=== PATIENT | male | born 1955 | race Two or more races ===

== ENCOUNTER → 2016-10-07 | Outpatient (REF) | payer BC ==
[~2016-10-07] MED LIST: FERR324T2 PO; JANU50TA8 PO; KRIL1000 PO; LEVE1INJ5 SC; MULTCAP PO; OMEG100011 PO; PANT40TA2 PO; ROBISYP PO; VITA20008 PO; ZOSTINJ SC; [UNRECOGNIZED DRUG - CODE] TOP
[2016-10-07 11:40] LABS: ANION GAP 10 MEQ/L (8-16); BLOOD UREA NITROGEN 12 MG/DL (7-18); CALCIUM LEVEL 9.2 MG/DL (8.8-10.2); CARBON DIOXIDE LEVEL 29 MEQ/L (21-32); CHLORIDE LEVEL 101 MEQ/L (98-107); CREATININE FOR GFR 1.06 MG/DL (0.70-1.30); GLOMERULAR FILTRATION RATE > 60.0 (>49); GLUCOSE, FASTING 183 MG/DL (80-110); POTASSIUM SERUM 4.8 MEQ/L (3.5-5.1); SODIUM LEVEL 140 MEQ/L (136-145)
[2016-10-07 16:59] LABS: HIV SCRN NEGATIVE (NEGATIVE); HIV SCRN1 NEGATIVE (NEGATIVE)
[2016-10-07 17:00] LABS: CONTROL LINE INT CTR LINE PRESENT
== END ==
LOC: M SFHCPLAZ 08:54
PROVIDERS: ATTEND Internal Medicine Infectious Disease
DX: Z72.52 High risk homosexual behavior (principal); A52.71 Late syphilitic oculopathy

== ENCOUNTER → 2017-01-09 | Outpatient (CLI) | payer BC | LOC: M WUC 08:02 | PROVIDERS: ATTEND Internal Medicine Infectious Disease | DX: Z72.52 High risk homosexual behavior (principal) ==

== ENCOUNTER → 2017-04-07 | Outpatient (CLI) | payer BC ==
[2017-04-07 10:14] LABS: ANION GAP 8 MEQ/L (8-16); BLOOD UREA NITROGEN 13 MG/DL (7-18); CALCIUM LEVEL 9.5 MG/DL (8.8-10.2); CARBON DIOXIDE LEVEL 28 MEQ/L (21-32); CHLORIDE LEVEL 100 MEQ/L (98-107); CREATININE FOR GFR 1.12 MG/DL (0.70-1.30); GLOMERULAR FILTRATION RATE > 60.0 (>49); GLUCOSE, FASTING 183 MG/DL (80-110); POTASSIUM SERUM 4.7 MEQ/L (3.5-5.1); SODIUM LEVEL 136 MEQ/L (136-145)
== END ==
LOC: M WUC 08:00
PROVIDERS: ATTEND Internal Medicine Infectious Disease
DX: Z72.52 High risk homosexual behavior (principal)

== ENCOUNTER → 2017-04-10 | Outpatient (REF) | payer BC ==
[2017-04-16 00:10] LABS: CHLAMYDIA RECTAL APTIMA Negative (Negative); GC RECTAL APTIMA Negative (Negative)
[2017-04-16 08:09] LABS: CHLAMYDIA PHARYNGEAL APTIMA Negative (Negative); GC PHARYNGEAL APTIMA Negative (Negative)
== END ==
LOC: M SFHCPLAZ 12:21
PROVIDERS: ATTEND Internal Medicine Infectious Disease
DX: Z72.52 High risk homosexual behavior (principal)

== ENCOUNTER → 2017-05-20 | Outpatient (REF) | payer BC ==
[2017-05-20 11:20] LABS: ANION GAP 10 MEQ/L (8-16); BLOOD UREA NITROGEN 8 MG/DL (7-18); CALCIUM LEVEL 9.9 MG/DL (8.8-10.2); CARBON DIOXIDE LEVEL 27 MEQ/L (21-32); CHLORIDE LEVEL 103 MEQ/L (98-107); CHOLESTEROL LEVEL 155 MG/DL (<200); CREATININE FOR GFR 0.98 MG/DL (0.70-1.30); GLOMERULAR FILTRATION RATE > 60.0 (>49); GLUCOSE, FASTING 117 MG/DL (80-110); POTASSIUM SERUM 4.6 MEQ/L (3.5-5.1); SODIUM LEVEL 140 MEQ/L (136-145); TRIGLYCERIDES LEVEL 97 MG/DL (<150)
== END ==
LOC: M SFHCPLAZ 09:17
PROVIDERS: ATTEND Family Medicine
DX: E11.9 Type 2 diabetes mellitus without complications (principal); E78.2 Mixed hyperlipidemia

== ENCOUNTER → 2017-07-03 | Outpatient (CLI) | payer BC ==
[2017-07-03 09:44] LABS: ANION GAP 5 MEQ/L (8-16); BLOOD UREA NITROGEN 14 MG/DL (7-18); CALCIUM LEVEL 9.4 MG/DL (8.8-10.2); CARBON DIOXIDE LEVEL 31 MEQ/L (21-32); CHLORIDE LEVEL 103 MEQ/L (98-107); CREATININE FOR GFR 0.96 MG/DL (0.70-1.30); GLOMERULAR FILTRATION RATE > 60.0 (>49); GLUCOSE, FASTING 139 MG/DL (80-110); SODIUM LEVEL 139 MEQ/L (136-145)
== END ==
LOC: M WUC 08:02
PROVIDERS: ATTEND Internal Medicine Infectious Disease
DX: Z72.52 High risk homosexual behavior (principal); A52.71 Late syphilitic oculopathy

== ENCOUNTER → 2017-07-03 | Outpatient (CLI) | payer BC ==
--- NOTE | 2017-07-03 10:04 | REP ---
Chest x-ray: Two views. History: Pulmonary fibrosis. Comparison chest x-ray December 13, 2014. Findings: There is a questionable 1 cm nodular opacity overlying the anterior end of the left 6th rib at the left lung base on today's PA chest radiograph. This is not seen on lateral radiograph. I cannot exclude a pulmonary nodule. Chest CT scanning is recommended. Remaining lung mancuso are clear. Heart is not enlarged. Pleural angles are sharp. There are mild degenerative disc changes in the thoracic spine. Impression: Question nodular opacity superimposed on the anterior 6th rib on the left lung base. Suggest chest CT study. Otherwise no acute disease. Signed by Phan Miranda MD 07/03/2017 11:59 A
== END ==
LOC: M WUC 08:08
PROVIDERS: ATTEND Internal Medicine Cardiovascular Disease
DX: J84.10 Pulmonary fibrosis, unspecified (principal)

== ENCOUNTER → 2017-08-04 | Outpatient (CLI) | payer BC ==
--- NOTE | 2017-08-04 19:50 | REP ---
CT CHEST WITHOUT CONTRAST: 08/04/2017. Clinical history: Questionable pulmonary nodule on recent radiograph. Comparison: 07/03/2017, 12/13/2014 chest x-ray. Findings: Axial soft-tissue and lung windows with coronal and sagittal reconstructions. Bone windows are also reviewed. The lung mancuso are well inflated. There is no pleural effusion. Minor dependent atelectatic changes deep sulcus right lower lobe. There is no pleural based mass, pleural plaque or calcified plaque or parenchymal mass. I see no pulmonary nodule, acute infiltrate, atelectasis or other acute finding. No bronchiectasis. There is no pneumothorax or pneumomediastinum. The heart is not enlarged. There is no pericardial thickening or effusion. Some scattered calcifications in the coronary arteries noted. No pericardial thickening or effusion. No pathologic sized mediastinal or hilar adenopathy. No aortic aneurysm. I see no axillary or supraclavicular mass. Bone windows show the sternum, manubrium, clavicles, AC joints, glenohumeral joints, scapula and ribs without fracture or focal lesion. There are degenerative changes and multiple Schmorl's nodes seen throughout the thoracic spine at various levels. No acute compression deformity. Some minor anterior wedging of L1 is old with no paraspinal hematoma. The upper abdomen shows no hepatomegaly or focal hepatic lesion. No biliary dilatation. Gallbladder without calcified stones visualized pancreas intact. Stomach with neda from prior surgery. Granulomatous calcifications in the spleen. I see no chest wall mass or calcifications that might be have a plain radiographic appearance. Impression: 1. There is no chest wall lesion, rib lesion, pleural lesion, parenchymal lung mass or other finding to account for the radiographic appearance. I believe this is superimposition of the anterior left 6th and posterior 9th rib on that left side. 2. Small granulomas disease seen in the spleen. No acute finding. Signed by Baljinder Hinton MD 08/04/2017 08:06 P
== END ==
LOC: M RAD 17:18
PROVIDERS: ATTEND Internal Medicine Cardiovascular Disease
DX: R91.1 Solitary pulmonary nodule (principal)

== ENCOUNTER → 2017-09-23 | Outpatient (CLI) | payer BC ==
[2017-09-23 11:25] LABS: ESTIMATED AVERAGE GLUCOSE 160 MG/DL (60-110); HEMOGLOBIN A1c 7.2 %
== END ==
LOC: M WUC 08:03
DX: E11.65 Type 2 diabetes mellitus with hyperglycemia (principal)
CPT/HCPCS: 83036

== ENCOUNTER → 2017-09-23 | Outpatient (CLI) | payer BC ==
[2017-09-23 10:03] LABS: ANION GAP 6 MEQ/L (8-16); BLOOD UREA NITROGEN 16 MG/DL (7-18); CARBON DIOXIDE LEVEL 33 MEQ/L (21-32); CHLORIDE LEVEL 102 MEQ/L (98-107); CREATININE FOR GFR 0.96 MG/DL (0.70-1.30); GLOMERULAR FILTRATION RATE > 60.0 (>49); GLUCOSE, FASTING 99 MG/DL (80-110); POTASSIUM SERUM 4.9 MEQ/L (3.5-5.1); SODIUM LEVEL 141 MEQ/L (136-145)
[2017-09-23 11:42] LABS: CHLAMYDIA DNA AMPLIFICATION NEGATIVE (NEGATIVE); GC DNA AMPLIFICATION NEGATIVE (NEGATIVE)
[2017-09-24 10:35] LABS: HIV 1&2 SCREEN CENTAUR NEGATIVE (NEGATIVE)
[2017-09-27 14:09] LABS: RPR Non Reactive (Non Reactive); T PALLIDUM ANTIBODIES Positive (Negative); T PALLIDUM IMMUNOBLOT Positive (Negative)
== END ==
LOC: M WUC 08:06
DX: Z72.52 High risk homosexual behavior (principal); A52.71 Late syphilitic oculopathy
CPT/HCPCS: 80048

== ENCOUNTER → 2017-11-04 | Day surgery (SDC) | payer BC ==
[~2017-11-04] MED LIST changes: -FERR324T2 PO; -JANU50TA8 PO; -KRIL1000 PO; -LEVE1INJ5 SC; +LIDOCAINE 2% INJ 100 MG/5 ML SDV (FOR ANES.) As Ordered; -MULTCAP PO; -OMEG100011 PO; -PANT40TA2 PO; +PROPOFOL 200 MG/20 ML VIAL As Ordered; -ROBISYP PO; -VITA20008 PO; -ZOSTINJ SC; -[UNRECOGNIZED DRUG - CODE] TOP
[2017-11-04] MEDS: NS 1,000 ML IV (07:30)
== END | disposition home or self-care (01) ==
LOC: M OPP 06:35
DX: K21.9 Gastro-esophageal reflux disease without esophagitis (principal); Z98.0 Intestinal bypass and anastomosis status; R00.8 Other abnormalities of heart beat; I10 Essential (primary) hypertension; E78.5 Hyperlipidemia, unspecified; E10.9 Type 1 diabetes mellitus without complications; R12 Heartburn; A53.9 Syphilis, unspecified; G47.30 Sleep apnea, unspecified; D64.9 Anemia, unspecified; G25.81 Restless legs syndrome; Z98.84 Bariatric surgery status; Z79.82 Long term (current) use of aspirin; Z79.899 Other long term (current) drug therapy
CPT/HCPCS: 91035

== ENCOUNTER → 2017-11-07 | Outpatient (CLI) | payer BC ==
[2017-11-07 09:25] LABS: HEMATOCRIT 42.3 % (42.0-52.0); MEAN CORPUSCULAR HEMOGLOBIN 29.9 pg (27.0-33.0); MEAN CORPUSCULAR HGB CONC 33.1 g/dl (32.0-36.5); MEAN CORPUSCULAR VOLUME 90.2 fl (80.0-96.0); PLATELET COUNT, AUTOMATED 249 10^3/uL (150-450); RED BLOOD COUNT 4.69 10^6/uL (4.30-6.10); WHITE BLOOD COUNT 6.9 10^3/uL (4.0-10.0)
[2017-11-07 09:51] LABS: IRON (FE) 111 UG/DL (65-175)
[2017-11-07 09:51] LABS: FREE T4 1.03 NG/DL (0.76-1.46); THYROID STIMULATING HORMONE 0.692 uIU/ML (0.358-3.740)
[2017-11-07 09:53] LABS: TOTAL 25(OH) VITAMIN D 41.5 NG/ML (30.0-100.0); VITAMIN B12 LEVEL 502 PG/ML (247-911)
[2017-11-11 08:07] LABS: ZINC PLASMA 74 ug/dL (56-134)
== END ==
LOC: M WUC 08:06
DX: K91.1 Postgastric surgery syndromes (principal)
CPT/HCPCS: 82525

== ENCOUNTER 2018-02-06 23:48 | Inpatient (IN) | payer BC ==
[2018-02-07 03:23] LABS: BASO % 0.3 % (0.0-1.0); EOS % 0.1 % (0.0-3.0); HEMATOCRIT 39.3 % (42.0-52.0); HEMOGLOBIN 13.4 g/dl (13.5-17.5); IMMATURE GRANULOCYTE % 0.3 % (0-3.0); LYMPH # 0.3 10^3/uL (1.5-4.5); LYMPH % 2.4 % (24.0-44.0); MEAN CORPUSCULAR HEMOGLOBIN 30.9 pg (27.0-33.0); MEAN CORPUSCULAR HGB CONC 34.1 g/dl (32.0-36.5); MEAN CORPUSCULAR VOLUME 90.6 fl (80.0-96.0); MONO # 0.9 10^3/uL (0.0-0.8); MONO % 7.5 % (0.0-5.0); NEUTROPHILS # 10.2 10^3/uL (1.8-7.7); NEUTROPHILS % 89.4 % (36.0-66.0); PLATELET COUNT, AUTOMATED 189 10^3/uL (150-450); RED BLOOD COUNT 4.34 10^6/uL (4.30-6.10); RED CELL DISTRIBUTION WIDTH 12.7 % (11.5-14.5); WHITE BLOOD COUNT 11.4 10^3/uL (4.0-10.0)
[2018-02-07 03:50] LABS: POSITIVE DIFF POS FLAG
[2018-02-07 03:54] LABS: ALBUMIN 3.6 GM/DL (3.2-5.2); ALBUMIN/GLOBULIN RATIO 0.97 (1.00-1.93); ALKALINE PHOSPHATASE 100 U/L (45-117); ALT/SGPT 135 U/L (12-78); ANION GAP 7 MEQ/L (8-16); AST/SGOT 107 U/L (7-37); BILIRUBIN,DIRECT 3.5 MG/DL (0.0-0.2); BILIRUBIN,TOTAL 4.2 MG/DL (0.2-1.0); BLOOD UREA NITROGEN 26 MG/DL (7-18); CALCIUM LEVEL 8.9 MG/DL (8.8-10.2); CARBON DIOXIDE LEVEL 27 MEQ/L (21-32); CHLORIDE LEVEL 104 MEQ/L (98-107); CPK CREATINE PHOSPHOKINASE 51 U/L (39-308); CREATININE FOR GFR 1.14 MG/DL (0.70-1.30); GLOMERULAR FILTRATION RATE > 60.0 (>49); GLUCOSE, FASTING 128 MG/DL (70-100); POTASSIUM SERUM 4.6 MEQ/L (3.5-5.1); SODIUM LEVEL 138 MEQ/L (136-145); TOTAL PROTEIN 7.3 GM/DL (6.4-8.2); TROPONIN I < 0.02 NG/ML (< 0.10)
[2018-02-07 04:00] LABS: CK-MB VALUE MASS < 1.0 NG/ML (<3.6); MB/CK RELATIVE INDEX 1.96 (< OR =4); NT-PRO BNP 57 PG/ML (<125); THYROID STIMULATING HORMONE 0.413 uIU/ML (0.358-3.740)
[2018-02-07] MEDS ORDERED: ISOVUE-370 76% 100ML VIAL (Q9967) As Ordered (04:32)
[2018-02-07 06:02] LABS: LIPASE 161 U/L (73-393)
[2018-02-07] MEDS: NS 1,000 ML IV ×3 (06:23→22:04)
[2018-02-07 06:45] LABS: AMYLASE 48 U/L (25-115); CPK CREATINE PHOSPHOKINASE 39 U/L (39-308); TROPONIN I < 0.02 NG/ML (< 0.10)
[2018-02-07 06:46] LABS: CK-MB VALUE MASS < 1.0 NG/ML (<3.6); MB/CK RELATIVE INDEX 2.56 (< OR =4)
[2018-02-07] MEDS: PANTOPRAZOLE 40MG INJ (PROTONIX) (C9113) IV ×2 (09:00→22:04)
[2018-02-07] MEDS ORDERED: PROMETHAZINE INJ 25 MG/ML VIAL (J2550) IV (10:15)
[2018-02-07] MEDS ORDERED: METOCLOPRAMIDE INJ 10MG/2ML VIAL (J2765) IV (10:15)
[2018-02-07] MEDS ORDERED: MORPHINE 4 MG/ML 1ML VIAL/SYRINGE (J2270) IV (10:15)
[2018-02-07] MEDS: HumaLOG INSULIN (NovoLOG) PER UNIT SC ×3 (11:43→21:00)
[2018-02-07 11:49] LABS: BEDSIDE GLUCOSE 116 MG/DL (80-115)
[2018-02-07] MEDS: PIPERACILLIN/TAZOBACTAM SOD 3.375 GM in D5W MINI-BAG PLUS 50 ML IV ×2 (12:15→17:01)
[2018-02-07 17:08] LABS: BEDSIDE GLUCOSE 108 MG/DL (80-115)
[2018-02-07 18:50] LABS: BEDSIDE GLUCOSE 87 MG/DL (80-115)
[2018-02-07 20:42] LABS: BEDSIDE GLUCOSE 147 MG/DL (80-115)
[2018-02-07] MEDS: GABAPENTIN 300 MG CAP PO (22:04)
[2018-02-07] MEDS: LISINOPRIL 5 MG TAB PO (22:05)
[2018-02-08] MEDS: PIPERACILLIN/TAZOBACTAM SOD 3.375 GM in D5W MINI-BAG PLUS 50 ML IV ×5 (00:53→23:53)
[2018-02-08 06:05] LABS: HEMATOCRIT 34.1 % (42.0-52.0); MEAN CORPUSCULAR HEMOGLOBIN 30.6 pg (27.0-33.0); MEAN CORPUSCULAR HGB CONC 33.4 g/dl (32.0-36.5); MEAN CORPUSCULAR VOLUME 91.4 fl (80.0-96.0); PLATELET COUNT, AUTOMATED 178 10^3/uL (150-450); RED BLOOD COUNT 3.73 10^6/uL (4.30-6.10); WHITE BLOOD COUNT 4.6 10^3/uL (4.0-10.0)
[2018-02-08] MEDS: NS 1,000 ML IV ×2 (06:13→08:39)
[2018-02-08 06:25] LABS: HEMOGLOBIN 11.4 g/dl (13.5-17.5)
[2018-02-08 06:26] LABS: ALBUMIN 2.8 GM/DL (3.2-5.2); ALBUMIN/GLOBULIN RATIO 0.88 (1.00-1.93); ALKALINE PHOSPHATASE 80 U/L (45-117); ALT/SGPT 93 U/L (12-78); ANION GAP 5 MEQ/L (8-16); AST/SGOT 52 U/L (7-37); BILIRUBIN,TOTAL 1.8 MG/DL (0.2-1.0); BLOOD UREA NITROGEN 11 MG/DL (7-18); CALCIUM LEVEL 8.5 MG/DL (8.8-10.2); CARBON DIOXIDE LEVEL 27 MEQ/L (21-32); CHLORIDE LEVEL 112 MEQ/L (98-107); CREATININE FOR GFR 0.99 MG/DL (0.70-1.30); GLOMERULAR FILTRATION RATE > 60.0 (>49); GLUCOSE, FASTING 106 MG/DL (70-100); POTASSIUM SERUM 4.2 MEQ/L (3.5-5.1); SODIUM LEVEL 144 MEQ/L (136-145)
[2018-02-08] MEDS: HumaLOG INSULIN (NovoLOG) PER UNIT SC ×4 (07:30→21:00)
[2018-02-08] MEDS: PANTOPRAZOLE 40MG INJ (PROTONIX) (C9113) IV ×2 (08:38→21:30)
[2018-02-08] MEDS: ONDANSETRON 4MG/2ML VIAL (J2405) IV (15:40)
[2018-02-08] MEDS: MORPHINE 4 MG/ML 1ML VIAL/SYRINGE (J2270) IV (15:41)
[2018-02-08 17:24] LABS: BEDSIDE GLUCOSE 82 MG/DL (80-115)
[2018-02-08] MEDS: GABAPENTIN 300 MG CAP PO (21:30)
[2018-02-08] MEDS: LISINOPRIL 5 MG TAB PO (21:31)
[2018-02-08 21:40] LABS: BEDSIDE GLUCOSE 194 MG/DL (80-115)
[2018-02-09] MEDS: PIPERACILLIN/TAZOBACTAM SOD 3.375 GM in D5W MINI-BAG PLUS 50 ML IV ×4 (05:11→23:55)
[2018-02-09 06:29] LABS: HEMATOCRIT 33.5 % (42.0-52.0); HEMOGLOBIN 11.2 g/dl (13.5-17.5); MEAN CORPUSCULAR HEMOGLOBIN 30.3 pg (27.0-33.0); MEAN CORPUSCULAR HGB CONC 33.4 g/dl (32.0-36.5); MEAN CORPUSCULAR VOLUME 90.5 fl (80.0-96.0); PLATELET COUNT, AUTOMATED 183 10^3/uL (150-450); RED CELL DISTRIBUTION WIDTH 12.8 % (11.5-14.5); WHITE BLOOD COUNT 7.2 10^3/uL (4.0-10.0)
[2018-02-09 06:53] LABS: ALBUMIN 2.7 GM/DL (3.2-5.2); ALBUMIN/GLOBULIN RATIO 0.73 (1.00-1.93); ALKALINE PHOSPHATASE 149 U/L (45-117); ALT/SGPT 120 U/L (12-78); ANION GAP 6 MEQ/L (8-16); AST/SGOT 106 U/L (7-37); BLOOD UREA NITROGEN 11 MG/DL (7-18); CALCIUM LEVEL 8.3 MG/DL (8.8-10.2); CARBON DIOXIDE LEVEL 27 MEQ/L (21-32); CHLORIDE LEVEL 105 MEQ/L (98-107); CREATININE FOR GFR 1.29 MG/DL (0.70-1.30); GLOMERULAR FILTRATION RATE 59.9 (>49); GLUCOSE, FASTING 130 MG/DL (70-100); POTASSIUM SERUM 3.7 MEQ/L (3.5-5.1); SODIUM LEVEL 138 MEQ/L (136-145); TOTAL PROTEIN 6.4 GM/DL (6.4-8.2)
[2018-02-09] MEDS: PANTOPRAZOLE 40MG INJ (PROTONIX) (C9113) IV ×2 (08:14→20:19)
[2018-02-09] MEDS: HumaLOG INSULIN (NovoLOG) PER UNIT SC ×4 (08:15→21:00)
[2018-02-09 12:34] LABS: BEDSIDE GLUCOSE 98 MG/DL (80-115)
[2018-02-09 17:30] LABS: BEDSIDE GLUCOSE 111 MG/DL (80-115)
[2018-02-09] MEDS: ONDANSETRON 4MG/2ML VIAL (J2405) IV (17:37)
[2018-02-09] MEDS: MORPHINE 4 MG/ML 1ML VIAL/SYRINGE (J2270) IV (17:39)
[2018-02-09] MEDS: LISINOPRIL 5 MG TAB PO (20:19)
[2018-02-09] MEDS: GABAPENTIN 300 MG CAP PO (20:19)
[2018-02-09 20:53] LABS: BEDSIDE GLUCOSE 93 MG/DL (80-115)
[2018-02-10] MEDS: PIPERACILLIN/TAZOBACTAM SOD 3.375 GM in D5W MINI-BAG PLUS 50 ML IV ×3 (05:07→17:15)
[2018-02-10 06:48] LABS: MEAN CORPUSCULAR HEMOGLOBIN 30.6 pg (27.0-33.0); MEAN CORPUSCULAR HGB CONC 34.3 g/dl (32.0-36.5); MEAN CORPUSCULAR VOLUME 89.3 fl (80.0-96.0); PLATELET COUNT, AUTOMATED 203 10^3/uL (150-450); RED BLOOD COUNT 3.92 10^6/uL (4.30-6.10); RED CELL DISTRIBUTION WIDTH 12.9 % (11.5-14.5); WHITE BLOOD COUNT 7.4 10^3/uL (4.0-10.0)
[2018-02-10 07:13] LABS: ALBUMIN 2.7 GM/DL (3.2-5.2); ALBUMIN/GLOBULIN RATIO 0.68 (1.00-1.93); ALKALINE PHOSPHATASE 180 U/L (45-117); ALT/SGPT 137 U/L (12-78); ANION GAP 8 MEQ/L (8-16); AST/SGOT 89 U/L (7-37); BILIRUBIN,TOTAL 4.1 MG/DL (0.2-1.0); BLOOD UREA NITROGEN 11 MG/DL (7-18); CALCIUM LEVEL 8.7 MG/DL (8.8-10.2); CARBON DIOXIDE LEVEL 27 MEQ/L (21-32); CHLORIDE LEVEL 105 MEQ/L (98-107); CREATININE FOR GFR 1.11 MG/DL (0.70-1.30); GLOMERULAR FILTRATION RATE > 60.0 (>49); GLUCOSE, FASTING 133 MG/DL (70-100); POTASSIUM SERUM 3.7 MEQ/L (3.5-5.1); SODIUM LEVEL 140 MEQ/L (136-145); TOTAL PROTEIN 6.7 GM/DL (6.4-8.2)
[2018-02-10] MEDS: PANTOPRAZOLE 40MG INJ (PROTONIX) (C9113) IV ×2 (08:13→20:08)
[2018-02-10] MEDS: HumaLOG INSULIN (NovoLOG) PER UNIT SC ×4 (08:14→21:00)
[2018-02-10 11:27] LABS: BEDSIDE GLUCOSE 244 MG/DL (80-115)
[2018-02-10 16:59] LABS: BEDSIDE GLUCOSE 125 MG/DL (80-115)
[2018-02-10] MEDS: LISINOPRIL 5 MG TAB PO (20:09)
[2018-02-10] MEDS: GABAPENTIN 300 MG CAP PO (20:09)
[2018-02-10 21:31] LABS: BEDSIDE GLUCOSE 147 MG/DL (80-115)
== END 2018-02-10 21:45 | disposition short-term general hospital (02) ==
LOC: M ED 23:48 → M ED INP 02-07 10:08 → M MS5PR 02-07 11:16
DX: K80.50 Calculus of bile duct without cholangitis or cholecystitis without obstruction (principal); I10 Essential (primary) hypertension; Z79.899 Other long term (current) drug therapy; Z79.4 Long term (current) use of insulin; E11.9 Type 2 diabetes mellitus without complications; K21.9 Gastro-esophageal reflux disease without esophagitis

== ENCOUNTER → 2018-03-23 | Outpatient (CLI) | payer OTHER, BC ==
[2018-03-23 12:28] LABS: ANION GAP 8 MEQ/L (8-16); BLOOD UREA NITROGEN 17 MG/DL (7-18); CALCIUM LEVEL 9.3 MG/DL (8.8-10.2); CARBON DIOXIDE LEVEL 29 MEQ/L (21-32); CHLORIDE LEVEL 105 MEQ/L (98-107); CREATININE FOR GFR 1.04 MG/DL (0.70-1.30); GLOMERULAR FILTRATION RATE > 60.0 (>49); GLUCOSE, FASTING 95 MG/DL (70-100); POTASSIUM SERUM 4.8 MEQ/L (3.5-5.1); SODIUM LEVEL 142 MEQ/L (136-145)
[2018-03-23 13:07] LABS: HIV 1&2 SCREEN CENTAUR NEGATIVE (NEGATIVE)
[2018-03-23 14:14] LABS: CHLAMYDIA DNA AMPLIFICATION NEGATIVE (NEGATIVE); GC DNA AMPLIFICATION NEGATIVE (NEGATIVE)
[2018-03-24 10:16] LABS: RPR Non Reactive (Non Reactive)
== END ==
LOC: M WUC 09:55
DX: Z72.52 High risk homosexual behavior (principal)

== ENCOUNTER → 2018-03-23 | Outpatient (CLI) | payer OTHER, BC ==
[2018-03-23 12:36] LABS: ESTIMATED AVERAGE GLUCOSE 120 MG/DL (60-110); HEMOGLOBIN A1c 5.8 %
[2018-03-23 12:43] LABS: ALBUMIN/GLOBULIN RATIO 1.29 (1.00-1.93); ALKALINE PHOSPHATASE 74 U/L (45-117); ALT/SGPT 31 U/L (12-78); ANION GAP 8 MEQ/L (8-16); AST/SGOT 23 U/L (7-37); BILIRUBIN,TOTAL 0.6 MG/DL (0.2-1.0); BLOOD UREA NITROGEN 16 MG/DL (7-18); CALCIUM LEVEL 9.1 MG/DL (8.8-10.2); CARBON DIOXIDE LEVEL 30 MEQ/L (21-32); CHLORIDE LEVEL 104 MEQ/L (98-107); CHOLESTEROL LEVEL 114 MG/DL (<200); CHOLESTEROL RISK RATIO 2.326 (<5); CREATININE FOR GFR 1.02 MG/DL (0.70-1.30); GLOMERULAR FILTRATION RATE > 60.0 (>49); GLUCOSE, FASTING 93 MG/DL (70-100); HDL CHOLESTEROL 49 MG/DL (>40); LDL CHOLESTEROL 51.6 MG/DL (<100); NON-HDL-C 65 MG/DL; POTASSIUM SERUM 4.9 MEQ/L (3.5-5.1); PSA SCREENING 0.64 NG/ML (< 4.0); SODIUM LEVEL 142 MEQ/L (136-145); TOTAL PROTEIN 7.1 GM/DL (6.4-8.2); TRIGLYCERIDES LEVEL 67 MG/DL (<150)
== END ==
LOC: M WUC 09:49
DX: Z00.00 Encounter for general adult medical examination without abnormal findings (principal); E11.65 Type 2 diabetes mellitus with hyperglycemia
CPT/HCPCS: 80053

== ENCOUNTER → 2018-03-30 | Outpatient (REF) | payer OTHER ==
[2018-04-02 00:09] LABS: CHLAMYDIA PHARYNGEAL APTIMA Negative (Negative); CHLAMYDIA RECTAL APTIMA Negative (Negative); GC PHARYNGEAL APTIMA Negative (Negative); GC RECTAL APTIMA Negative (Negative)
== END ==
LOC: M SFHCPLAZ 12:00
DX: Z72.52 High risk homosexual behavior (principal)

== ENCOUNTER → 2018-09-07 | Outpatient (CLI) | payer OTHER ==
[~2018-09-07] MED LIST changes: +ASPI1TAB PO; +FERR324T2 PO; +GABA-843 PO; +JANU50TA25 PO; +JANU50TA8 PO; +KRIL1000 PO; +LEVE1INJ5 SC; +LEXA1TAB PO; -LIDOCAINE 2% INJ 100 MG/5 ML SDV (FOR ANES.) As Ordered; +LISI-542 PO; +MULTCAP PO; +OMEG100011 PO; +OMEP20CA3 PO; +PANT40TA3 PO; +PRAV40TA2 PO; -PROPOFOL 200 MG/20 ML VIAL As Ordered; +RANI150T PO; +ROBISYP PO; +SUCR1TA PO; +TRUL10IN SC; +TRUVTAB PO; +VITA20008 PO; +ZOSTINJ SC; +[UNRECOGNIZED DRUG - CODE] TOP
[2018-09-07 09:16] LABS: APPEARANCE, URINE CLEAR (CLEAR); BACTERIA, URINE AUTO NEGATIVE (NEGATIVE); BILIRUBIN, URINE AUTO NEGATIVE (NEGATIVE); BLOOD, URINE BLOOD NEGATIVE (NEGATIVE); COLOR, URINE YELLOW (YELLOW); GLUCOSE, URINE (UA) AUTO 1+ mg/dL (NEGATIVE); KETONE, URINE AUTO NEGATIVE (NEGATIVE); LEUKOCYTE ESTERASE, URINE AUTO NEGATIVE (NEGATIVE); MUCUS, URINE SMALL (NEGATIVE); NITRITE, URINE AUTO NEGATIVE (NEGATIVE); PROTEIN, URINE AUTO NEGATIVE (NEGATIVE); RBC, URINE AUTO 1 /HPF (0-3); SPECIFIC GRAVITY URINE AUTO 1.024 (1.002-1.035); SQUAMOUS EPITHELIAL CELL UR AU 0 /HPF (0-6); WBC, URINE AUTO 0 /HPF (0-3)
[2018-09-07 09:36] LABS: BLOOD UREA NITROGEN 11 MG/DL (7-18); CALCIUM LEVEL 9.2 MG/DL (8.8-10.2); CARBON DIOXIDE LEVEL 31 MEQ/L (21-32); CHLORIDE LEVEL 102 MEQ/L (98-107); GLOMERULAR FILTRATION RATE > 60.0 (>49); GLUCOSE, FASTING 164 MG/DL (70-100); POTASSIUM SERUM 4.4 MEQ/L (3.5-5.1); SODIUM LEVEL 138 MEQ/L (136-145)
[2018-09-07 11:35] LABS: HIV 1&2 SCREEN CENTAUR NEGATIVE (NEGATIVE)
[2018-09-08 08:06] LABS: RPR Non Reactive (Non Reactive)
== END ==
LOC: M WUC 08:06
PROVIDERS: ATTEND Internal Medicine Infectious Disease
DX: Z72.52 High risk homosexual behavior (principal)

== ENCOUNTER → 2018-09-28 | Outpatient (REF) | payer OTHER ==
[2018-09-28 14:07] LABS: CHLAMYDIA DNA AMPLIFICATION NEGATIVE (NEGATIVE); GC DNA AMPLIFICATION NEGATIVE (NEGATIVE)
[2018-09-30 08:06] LABS: CHLAMYDIA PHARYNGEAL APTIMA Negative (Negative); GC PHARYNGEAL APTIMA Positive (Negative)
== END ==
LOC: M SFHCPLAZ 11:34
PROVIDERS: ATTEND Internal Medicine Infectious Disease
DX: Z72.52 High risk homosexual behavior (principal)

== ENCOUNTER → 2018-11-09 | Outpatient (REF) | payer OTHER ==
[2018-11-11 10:15] LABS: CHLAMYDIA PHARYNGEAL APTIMA Negative (Negative); GC PHARYNGEAL APTIMA Negative (Negative)
== END ==
LOC: M SFHCPLAZ 11:01
PROVIDERS: ATTEND Family Medicine
DX: A54.5 Gonococcal pharyngitis (principal)

== ENCOUNTER → 2018-12-28 | Outpatient (CLI) | payer OTHER ==
[~2018-12-28] MED LIST changes: -ASPI1TAB PO; +ASPI81TA26 PO
[2018-12-28 10:03] LABS: BLOOD UREA NITROGEN 14 MG/DL (7-18); CALCIUM LEVEL 9.2 MG/DL (8.8-10.2); CARBON DIOXIDE LEVEL 30 MEQ/L (21-32); CHLORIDE LEVEL 103 MEQ/L (98-107); CREATININE FOR GFR 1.07 MG/DL (0.70-1.30); GLOMERULAR FILTRATION RATE > 60.0 (>49); GLUCOSE, FASTING 152 MG/DL (70-100); POTASSIUM SERUM 4.6 MEQ/L (3.5-5.1); SODIUM LEVEL 138 MEQ/L (136-145)
[2018-12-28 10:57] LABS: HIV 1&2 SCREEN CENTAUR NEGATIVE (NEGATIVE)
[2018-12-28 11:50] LABS: CHLAMYDIA DNA AMPLIFICATION NEGATIVE (NEGATIVE); GC DNA AMPLIFICATION NEGATIVE (NEGATIVE)
== END ==
LOC: M WUC 08:12
PROVIDERS: ATTEND Internal Medicine Infectious Disease
DX: Z72.52 High risk homosexual behavior (principal)

== ENCOUNTER → 2019-03-10 | Outpatient (REF) | payer OTHER ==
[2019-03-10 15:47] LABS: BLOOD UREA NITROGEN 14 MG/DL (7-18); CALCIUM LEVEL 9.1 MG/DL (8.8-10.2); CARBON DIOXIDE LEVEL 31 MEQ/L (21-32); CHLORIDE LEVEL 104 MEQ/L (98-107); CHOLESTEROL LEVEL 151 MG/DL (<200); CHOLESTEROL RISK RATIO 3.973 (<5); CREATININE FOR GFR 1.02 MG/DL (0.70-1.30); GLOMERULAR FILTRATION RATE > 60.0 (>49); GLUCOSE, FASTING 128 MG/DL (70-100); HDL CHOLESTEROL 38 MG/DL (>40); LDL CHOLESTEROL 86 MG/DL (<100); NON-HDL-C 113 MG/DL; POTASSIUM SERUM 4.5 MEQ/L (3.5-5.1); SODIUM LEVEL 140 MEQ/L (136-145); TRIGLYCERIDES LEVEL 133 MG/DL (<150)
[2019-03-10 16:10] LABS: HEMOGLOBIN A1c 6.8 %
[2019-03-10 16:14] LABS: MALB URINE SIEMENS 9.5 MG/L; MAU/CREAT RATIO 7.2 MCG/MG (0.0-30.0)
== END ==
LOC: M SFHCPLAZ 13:32
PROVIDERS: ATTEND Family Medicine
DX: E11.9 Type 2 diabetes mellitus without complications (principal); E78.2 Mixed hyperlipidemia

== ENCOUNTER → 2019-03-22 | Outpatient (CLI) | payer OTHER ==
[~2019-03-22] MED LIST changes: +OMEP1CAP73 PO; -OMEP20CA3 PO
[2019-03-22 09:24] LABS: APPEARANCE, URINE HAZY (CLEAR); BACTERIA, URINE AUTO NEGATIVE (NEGATIVE); BILIRUBIN, URINE AUTO NEGATIVE (NEGATIVE); BLOOD, URINE BLOOD NEGATIVE (NEGATIVE); COLOR, URINE YELLOW (YELLOW); GLUCOSE, URINE (UA) AUTO 1+ mg/dL (NEGATIVE); KETONE, URINE AUTO NEGATIVE (NEGATIVE); LEUKOCYTE ESTERASE, URINE AUTO NEGATIVE (NEGATIVE); MUCUS, URINE SMALL (NEGATIVE); NITRITE, URINE AUTO NEGATIVE (NEGATIVE); PROTEIN, URINE AUTO NEGATIVE (NEGATIVE); RBC, URINE AUTO 1 /HPF (0-3); SQUAMOUS EPITHELIAL CELL UR AU 0 /HPF (0-6); UROBILINOGEN, URINE AUTO 0.2 mg/dL (0.0-2.0); WBC, URINE AUTO 1 /HPF (0-3)
[2019-03-22 09:58] LABS: BLOOD UREA NITROGEN 16 MG/DL (7-18); CALCIUM LEVEL 9.1 MG/DL (8.8-10.2); CARBON DIOXIDE LEVEL 31 MEQ/L (21-32); CHLORIDE LEVEL 104 MEQ/L (98-107); CREATININE FOR GFR 1.03 MG/DL (0.70-1.30); GLOMERULAR FILTRATION RATE > 60.0 (>49); GLUCOSE, FASTING 171 MG/DL (70-100); POTASSIUM SERUM 4.8 MEQ/L (3.5-5.1); SODIUM LEVEL 138 MEQ/L (136-145)
[2019-03-22 11:08] LABS: HIV 1&2 SCREEN CENTAUR NEGATIVE (NEGATIVE)
[2019-03-22 15:03] LABS: CHLAMYDIA DNA AMPLIFICATION NEGATIVE (NEGATIVE); GC DNA AMPLIFICATION NEGATIVE (NEGATIVE)
[2019-03-23 08:07] LABS: RPR Non Reactive (Non Reactive)
== END ==
LOC: M WUC 08:03
PROVIDERS: ATTEND Internal Medicine Infectious Disease
DX: Z72.52 High risk homosexual behavior (principal)

== ENCOUNTER → 2019-03-29 | Outpatient (REF) | payer OTHER ==
[~2019-03-29] MED LIST changes: -OMEP1CAP73 PO; +OMEP20CA4 PO
== END ==
LOC: M SFHCPLAZ 10:02
PROVIDERS: ATTEND Internal Medicine Infectious Disease
DX: Z72.52 High risk homosexual behavior (principal)

== ENCOUNTER → 2019-07-17 | Outpatient (CLI) | payer OTHER | LOC: M WUC 07:58 | PROVIDERS: ATTEND Internal Medicine Infectious Disease | DX: Z72.52 High risk homosexual behavior (principal) ==

== ENCOUNTER → 2019-09-24 | Outpatient (CLI) | payer OTHER ==
[~2019-09-24] MED LIST changes: +OMEP-172 PO; -OMEP20CA4 PO
[2019-09-24 12:37] LABS: APPEARANCE, URINE HAZY (CLEAR); BACTERIA, URINE AUTO NEGATIVE (NEGATIVE); BILIRUBIN, URINE AUTO NEGATIVE (NEGATIVE); BLOOD, URINE BLOOD NEGATIVE (NEGATIVE); COLOR, URINE YELLOW (YELLOW); GLUCOSE, URINE (UA) AUTO 1+ mg/dL (NEGATIVE); KETONE, URINE AUTO NEGATIVE (NEGATIVE); LEUKOCYTE ESTERASE, URINE AUTO NEGATIVE (NEGATIVE); NITRITE, URINE AUTO NEGATIVE (NEGATIVE); PROTEIN, URINE AUTO NEGATIVE (NEGATIVE); RBC, URINE AUTO 2 /HPF (0-3); SPECIFIC GRAVITY URINE AUTO 1.025 (1.002-1.035); SQUAMOUS EPITHELIAL CELL UR AU 0 /HPF (0-6); UROBILINOGEN, URINE AUTO 0.2 mg/dL (0.0-2.0); WBC, URINE AUTO 0 /HPF (0-3)
[2019-09-24 13:03] LABS: HIV 1&2 SCREEN CENTAUR NEGATIVE (NEGATIVE)
[2019-09-24 14:05] LABS: CHLAMYDIA DNA AMPLIFICATION NEGATIVE (NEGATIVE); GC DNA AMPLIFICATION NEGATIVE (NEGATIVE)
== END ==
LOC: M WUC 09:56
PROVIDERS: ATTEND Internal Medicine Infectious Disease
DX: Z72.52 High risk homosexual behavior (principal)

== ENCOUNTER → 2019-09-24 | Outpatient (CLI) | payer OTHER ==
[2019-09-24 12:19] LABS: BLOOD UREA NITROGEN 16 MG/DL (7-18); CALCIUM LEVEL 9.3 MG/DL (8.8-10.2); CARBON DIOXIDE LEVEL 28 MEQ/L (21-32); CHLORIDE LEVEL 104 MEQ/L (98-107); CREATININE FOR GFR 1.16 MG/DL (0.70-1.30); GLOMERULAR FILTRATION RATE > 60.0 (>49); GLUCOSE, FASTING 119 MG/DL (70-100); POTASSIUM SERUM 4.5 MEQ/L (3.5-5.1); SODIUM LEVEL 139 MEQ/L (136-145)
[2019-09-24 12:44] LABS: MALB URINE SIEMENS 14.5 MG/L; MAU/CREAT RATIO 8.6 MCG/MG (0.0-30.0)
[2019-09-24 12:54] LABS: HEMOGLOBIN A1c 7.8 %
== END ==
LOC: M WUC 10:02
PROVIDERS: ATTEND Family Medicine
DX: E11.9 Type 2 diabetes mellitus without complications (principal)

== ENCOUNTER → 2019-09-27 | Outpatient (REF) | payer OTHER ==
[2019-09-30 08:07] LABS: CHLAMYDIA PHARYNGEAL APTIMA Negative (Negative); GC PHARYNGEAL APTIMA Negative (Negative)
== END ==
LOC: M SFHCPLAZ 10:17
PROVIDERS: ATTEND Internal Medicine Infectious Disease
DX: Z72.52 High risk homosexual behavior (principal)

== ENCOUNTER → 2020-02-29 | Outpatient (CLI) | payer OTHER ==
[~2020-02-29] MED LIST changes: -OMEP-172 PO; +OMEP1CAP73 PO
[2020-02-29 17:57] LABS: CREATININE, URINE 69.2 MG/DL; MALB URINE SIEMENS < 5.0 MG/L; MAU/CREAT RATIO 7.2 MCG/MG (0.0-30.0)
[2020-02-29 18:36] LABS: HEMOGLOBIN A1c 7.3 %
== END ==
LOC: M WUC 10:11
PROVIDERS: ATTEND Student in an Organized Health Care Education/Training Program
DX: E11.65 Type 2 diabetes mellitus with hyperglycemia (principal)

== ENCOUNTER → 2020-03-06 | Outpatient (REF) | payer OTHER | LOC: M SFHCPLAZ 09:36 | PROVIDERS: ATTEND Family Medicine | DX: E11.9 Type 2 diabetes mellitus without complications (principal) ==

== ENCOUNTER → 2020-03-20 | Outpatient (CLI) | payer OTHER ==
[2020-03-20 10:55] LABS: APPEARANCE, URINE CLEAR (CLEAR); BACTERIA, URINE AUTO NEGATIVE (NEGATIVE); BILIRUBIN, URINE AUTO NEGATIVE (NEGATIVE); BLOOD, URINE BLOOD NEGATIVE (NEGATIVE); COLOR, URINE YELLOW (YELLOW); GLUCOSE, URINE (UA) AUTO NEGATIVE (NEGATIVE); KETONE, URINE AUTO TRACE mg/dL (NEGATIVE); LEUKOCYTE ESTERASE, URINE AUTO NEGATIVE (NEGATIVE); MUCUS, URINE SMALL (NEGATIVE); NITRITE, URINE AUTO NEGATIVE (NEGATIVE); PROTEIN, URINE AUTO NEGATIVE (NEGATIVE); RBC, URINE AUTO 2 /HPF (0-3); SPECIFIC GRAVITY URINE AUTO 1.023 (1.002-1.035); SQUAMOUS EPITHELIAL CELL UR AU 0 /HPF (0-6); WBC, URINE AUTO 0 /HPF (0-3)
[2020-03-20 11:25] LABS: BLOOD UREA NITROGEN 13 MG/DL (7-18); CALCIUM LEVEL 9.4 MG/DL (8.8-10.2); CARBON DIOXIDE LEVEL 30 MEQ/L (21-32); CHLORIDE LEVEL 105 MEQ/L (98-107); GLOMERULAR FILTRATION RATE > 60.0 (>49); GLUCOSE, FASTING 82 MG/DL (70-100); POTASSIUM SERUM 4.8 MEQ/L (3.5-5.1); SODIUM LEVEL 140 MEQ/L (136-145)
[2020-03-20 12:05] LABS: HIV 1&2 SCREEN CENTAUR NEGATIVE (NEGATIVE)
[2020-03-20 12:16] LABS: CHLAMYDIA DNA AMPLIFICATION NEGATIVE (NEGATIVE); GC DNA AMPLIFICATION NEGATIVE (NEGATIVE)
[2020-03-23 09:07] LABS: HSV-1 DNA Negative (Negative); HSV-2 DNA Negative (Negative)
== END ==
LOC: M WUC 08:23
PROVIDERS: ATTEND Family Medicine
DX: Z72.52 High risk homosexual behavior (principal)

== ENCOUNTER → 2020-03-27 | Outpatient (REF) | payer OTHER ==
[~2020-03-27] MED LIST changes: +PANT40TA29 PO; -PANT40TA3 PO
[2020-04-02 02:07] LABS: CHLAMYDIA PHARYNGEAL APTIMA Negative (Negative); GC PHARYNGEAL APTIMA Negative (Negative)
== END ==
LOC: M SFHCPLAZ 14:40
PROVIDERS: ATTEND Internal Medicine Infectious Disease
DX: Z72.52 High risk homosexual behavior (principal)

== ENCOUNTER → 2020-06-12 | Outpatient (CLI) | payer OTHER ==
[2020-06-12 13:10] LABS: BLOOD UREA NITROGEN 12 MG/DL (7-18); CALCIUM LEVEL 9.5 MG/DL (8.8-10.2); CARBON DIOXIDE LEVEL 28 MEQ/L (21-32); CHLORIDE LEVEL 103 MEQ/L (98-107); CREATININE FOR GFR 1.05 MG/DL (0.70-1.30); GLOMERULAR FILTRATION RATE > 60.0 (>49); GLUCOSE, FASTING 212 MG/DL (70-100); HIV 1&2 SCREEN CENTAUR NEGATIVE (NEGATIVE); POTASSIUM SERUM 4.6 MEQ/L (3.5-5.1); SODIUM LEVEL 135 MEQ/L (136-145)
[2020-06-13 19:12] LABS: CHLAMYDIA DNA AMPLIFICATION NEGATIVE (NEGATIVE); GC DNA AMPLIFICATION NEGATIVE (NEGATIVE)
== END ==
LOC: M WUC 08:47
PROVIDERS: ATTEND Internal Medicine Infectious Disease
DX: Z72.52 High risk homosexual behavior (principal)

== ENCOUNTER → 2020-06-12 | Outpatient (CLI) | payer OTHER ==
[2020-06-12 13:02] LABS: BLOOD UREA NITROGEN 10 MG/DL (7-18); CALCIUM LEVEL 9.5 MG/DL (8.8-10.2); CARBON DIOXIDE LEVEL 29 MEQ/L (21-32); CHLORIDE LEVEL 103 MEQ/L (98-107); CREATININE FOR GFR 1.05 MG/DL (0.70-1.30); FREE T4 0.88 NG/DL (0.76-1.46); GLOMERULAR FILTRATION RATE > 60.0 (>49); GLUCOSE, FASTING 210 MG/DL (70-100); POTASSIUM SERUM 4.6 MEQ/L (3.5-5.1); SODIUM LEVEL 135 MEQ/L (136-145); THYROID STIMULATING HORMONE 0.785 uIU/ML (0.358-3.740); VITAMIN B12 LEVEL 430 PG/ML (247-911)
[2020-06-12 13:38] LABS: HEMOGLOBIN A1c 8.2 %
== END ==
LOC: M WUC 08:45
PROVIDERS: ATTEND Student in an Organized Health Care Education/Training Program
DX: E11.9 Type 2 diabetes mellitus without complications (principal)

== ENCOUNTER → 2020-08-23 | Outpatient (REF) | payer OTHER | LOC: M SFHCPLAZ 11:03 | PROVIDERS: ATTEND Family Medicine | DX: G25.81 Restless legs syndrome (principal) ==

== ENCOUNTER → 2020-09-18 | Outpatient (CLI) | payer OTHER ==
[2020-09-18 12:13] LABS: PERCENT SATURATION 13.1 % (19.7-50.0)
== END ==
LOC: M WUC 09:09
PROVIDERS: ATTEND Student in an Organized Health Care Education/Training Program
DX: G25.81 Restless legs syndrome (principal)

== ENCOUNTER → 2020-09-18 | Outpatient (CLI) | payer OTHER ==
[2020-09-18 12:09] LABS: BLOOD UREA NITROGEN 13 MG/DL (7-18); CALCIUM LEVEL 8.6 MG/DL (8.8-10.2); CARBON DIOXIDE LEVEL 30 MEQ/L (21-32); CHLORIDE LEVEL 104 MEQ/L (98-107); CREATININE FOR GFR 1.12 MG/DL (0.70-1.30); GLOMERULAR FILTRATION RATE > 60.0 (>49); GLUCOSE, FASTING 184 MG/DL (70-100); POTASSIUM SERUM 4.2 MEQ/L (3.5-5.1); SODIUM LEVEL 139 MEQ/L (136-145)
[2020-09-18 13:01] LABS: HIV 1&2 SCREEN CENTAUR NEGATIVE (NEGATIVE)
[2020-09-18 15:34] LABS: CHLAMYDIA DNA AMPLIFICATION NEGATIVE (NEGATIVE); GC DNA AMPLIFICATION NEGATIVE (NEGATIVE)
== END ==
LOC: M WUC 09:11
PROVIDERS: ATTEND Internal Medicine Infectious Disease
DX: Z72.52 High risk homosexual behavior (principal)

== ENCOUNTER → 2020-09-25 | Outpatient (CLI) | payer OTHER ==
[2020-09-25 09:04] LABS: VENOUS BASE EXCESS 0.7 (-2.0-2.0); VENOUS HCO3 26.6 MEQ/L (23.0-27.0); VENOUS O2 SATURATION 82.2 % (60.0-80.0); VENOUS PARTIAL PRESSURE CO2 48.1 mmHg (38.0-50.0); VENOUS PARTIAL PRESSURE O2 50.5 mmHg (30.0-50.0); VENOUS PH 7.361 UNITS (7.330-7.430); VENOUS STANDARD HCO3 24.8 MEQ/L; VENOUS TOTAL CO2 28.1 MEQ/L (24.0-28.0)
[2020-09-25 09:09] LABS: HEMATOCRIT 36.9 % (42.0-52.0); HEMOGLOBIN 11.6 g/dl (13.5-17.5); MEAN CORPUSCULAR HEMOGLOBIN 27.5 pg (27.0-33.0); MEAN CORPUSCULAR HGB CONC 31.4 g/dl (32.0-36.5); MEAN CORPUSCULAR VOLUME 87.4 fl (80.0-96.0); PLATELET COUNT, AUTOMATED 234 10^3/uL (150-450); RED BLOOD COUNT 4.22 10^6/uL (4.30-6.10); WHITE BLOOD COUNT 4.9 10^3/uL (4.0-10.0)
[2020-09-25 09:31] LABS: ALBUMIN 3.9 GM/DL (3.2-5.2); BILIRUBIN,DIRECT 0.1 MG/DL (0.0-0.2); BILIRUBIN,TOTAL 0.4 MG/DL (0.2-1.0); CHOLESTEROL RISK RATIO 4.052 (<5); MAGNESIUM LEVEL 2.1 MG/DL (1.8-2.4); PHOSPHORUS LEVEL 2.7 MG/DL (2.5-4.9)
== END ==
LOC: M LAB 08:31
PROVIDERS: ATTEND Student in an Organized Health Care Education/Training Program
DX: E87.3 Alkalosis (principal); E66.1 Drug-induced obesity; E11.40 Type 2 diabetes mellitus with diabetic neuropathy, unspecified

== ENCOUNTER → 2020-09-26 | Outpatient (REF) | payer OTHER ==
[2020-09-26 20:10] LABS: CHLORIDE URINE 138 MEQ/L
[2020-09-26 21:04] LABS: CHLORIDE 24 HR URINE 151 MEQ/24HR (110-250); TOTAL VOLUME, URINE 1100 ML
== END ==
LOC: M SFHCPLAZ 17:14
PROVIDERS: ATTEND Student in an Organized Health Care Education/Training Program
DX: E87.3 Alkalosis (principal); E61.1 Iron deficiency; E11.40 Type 2 diabetes mellitus with diabetic neuropathy, unspecified

== ENCOUNTER → 2020-12-01 | Outpatient (CLI) | payer OTHER ==
[~2020-12-01] MED LIST changes: +GABA-282 PO; -GABA-843 PO; -LISI-542 PO; +LISI-898 PO
[2020-12-01 11:07] LABS: HEMATOCRIT 44.5 % (42.0-52.0); HEMOGLOBIN 14.2 g/dl (13.5-17.5); MEAN CORPUSCULAR HEMOGLOBIN 29.4 pg (27.0-33.0); MEAN CORPUSCULAR HGB CONC 31.9 g/dl (32.0-36.5); MEAN CORPUSCULAR VOLUME 92.1 fl (80.0-96.0); PLATELET COUNT, AUTOMATED 214 10^3/uL (150-450); RED BLOOD COUNT 4.83 10^6/uL (4.30-6.10); WHITE BLOOD COUNT 5.1 10^3/uL (4.0-10.0)
[2020-12-01 11:35] LABS: PERCENT SATURATION 36.7 % (19.7-50.0)
== END ==
LOC: M WUC 08:05
PROVIDERS: ATTEND Student in an Organized Health Care Education/Training Program
DX: D50.9 Iron deficiency anemia, unspecified (principal)

== ENCOUNTER → 2020-12-01 | Outpatient (CLI) | payer OTHER ==
[2020-12-01 11:33] LABS: BLOOD UREA NITROGEN 17 MG/DL (7-18); CALCIUM LEVEL 9.2 MG/DL (8.8-10.2); CARBON DIOXIDE LEVEL 31 MEQ/L (21-32); CHLORIDE LEVEL 103 MEQ/L (98-107); CREATININE FOR GFR 1.26 MG/DL (0.70-1.30); GLOMERULAR FILTRATION RATE > 60.0 (>49); GLUCOSE, FASTING 180 MG/DL (70-100); POTASSIUM SERUM 4.6 MEQ/L (3.5-5.1); SODIUM LEVEL 137 MEQ/L (136-145)
[2020-12-01 11:51] LABS: APPEARANCE, URINE MANUAL CLEAR (CLEAR); BILIRUBIN, URINE MANUAL NEGATIVE (NEGATIVE); BLOOD URINE MANUAL NEGATIVE (NEGATIVE); COLOR, URINE MANUAL YELLOW (YELLOW); GLUCOSE, URINE (UA) MANUAL NEGATIVE (NEGATIVE); KETONE, URINE MANUAL NEGATIVE (NEGATIVE); LEUKOCYTE ESTERASE, URINE MAN NEGATIVE (NEGATIVE); NITRITE, URINE MANUAL NEGATIVE (NEGATIVE); PROTEIN, URINE MANUAL NEGATIVE (NEGATIVE); SPECIFIC GRAVITY,URINE MANUAL 1.026 (1.002-1.035); UROBILINOGEN, URINE MANUAL NORMAL (NORMAL)
[2020-12-01 18:16] LABS: HIV 1&2 SCREEN CENTAUR NEGATIVE (NEGATIVE)
[2020-12-02 05:11] LABS: RPR Non Reactive (Non Reactive)
== END ==
LOC: M WUC 08:02
PROVIDERS: ATTEND Internal Medicine Infectious Disease
DX: Z72.52 High risk homosexual behavior (principal)